=== PATIENT | male | born 1995 | race Caucasian/White ===

== ENCOUNTER 2019-03-11 19:57 | Emergency (ER) | payer SELFPAY ==
--- NOTE | 2019-03-11 20:30 | ER Document Report ---
ED Medical Screen (RME) - General Chief Complaint: Probable Seizure Stated Complaint: SEIZURE,CHEST PAIN Time Seen by Provider: 03/11/19 20:22 Mode of Arrival: Medic Information source: Patient Notes: 23-year-old male presented to ED for complaint of having a seizure at work. He states he was leaning up against a counter talking with a customer when also suddenly he felt funny he settled for leaned against a counter and then does not remember anything else until he woke up into the EMS. He states he has had one seizure in the past in 2016 and they were not able to find anything then. Patient is alert oriented respirations regular and unlabored speaking in full sentences answering all questions appropriately. He states he does smoke half pack a day does not drink alcohol but does use pot daily. He was at work at [employer] when this happened. He states the only medical history he has besides his seizures his clavicle and finger fractures. He has not had any surgeries. I have greeted and performed a rapid initial assessment of this patient. A comprehensive ED assessment and evaluation of the patient, analysis of test results and completion of medical decision making process will be conducted by an additional ED providers. TRAVEL OUTSIDE OF THE [place] IN LAST 30 DAYS: No Physical Exam - Vital signs Vitals: Temp Pulse Resp BP Pulse Ox 97.9 F 68 18 137/74 H 100 03/11/19 20:09 03/11/19 20:09 03/11/19 20:09 03/11/19 20:09 03/11/19 20:09 Course - Vital Signs Vital signs: Temp Pulse Resp BP Pulse Ox 97.9 F 68 18 137/74 H 100 03/11/19 20:09 03/11/19 20:09 03/11/19 20:09 03/11/19 20:09 03/11/19 20:09
[2019-03-11 21:00] LABS: ABSOLUTE BASOPHILS # (AUTO) 0.1 10^3/uL (0.0-0.2); ABSOLUTE EOSINOPHILS # (AUTO) 0.1 10^3/uL (0.0-0.6); ABSOLUTE LYMPHOCYTES (AUTO) 1.9 10^3/uL (0.5-4.7); ABSOLUTE MONOCYTES (AUTO) 0.4 10^3/uL (0.1-1.4); BASOPHILS % (AUTO) 0.9 % (0-2); EOSINOPHILS % (AUTO) 1.9 % (0-6); HEMATOCRIT 43.8 % (37.9-51.0); HEMOGLOBIN 14.9 g/dL (13.5-17.0); LYMPHOCYTES % (AUTO) 24.7 % (13-45); MEAN CORPUSCULAR HEMOGLOBIN 31.5 pg (27.0-33.4); MEAN CORPUSCULAR HGB CONC 33.9 g/dL (32.0-36.0); MEAN CORPUSCULAR VOLUME 93 fl (80-97); MONOCYTES % (AUTO) 5.8 % (3-13); PLATELET COUNT 199 10^3/uL (150-450); RED BLOOD COUNT 4.72 10^6/uL (4.35-5.55); RED CELL DISTRIBUTION WIDTH 13.4 % (11.5-14.0); SEGMENTED NEUTROPHILS % (AUTO) 66.7 % (42-78); TOTAL CELLS COUNTED % (AUTO) 100 %; WHITE BLOOD COUNT 7.5 10^3/uL (4.0-10.5)
[2019-03-11 21:03] LABS: APPEARANCE,URINE CLEAR; BILIRUBIN,URINE NEGATIVE (NEGATIVE); COLOR,URINE YELLOW; GLUCOSE, URINE NEGATIVE (NEGATIVE); KETONES,URINE NEGATIVE (NEGATIVE); LEUKOCYTE ESTERASE,URINE NEGATIVE (NEGATIVE); NITRITE,URINE NEGATIVE (NEGATIVE); PROTEIN,URINE 30 mg/dL (NEGATIVE); URINE SPECIFIC GRAVITY 1.025
[2019-03-11 21:29] LABS: CREATINE KINASE MB 1.62 ng/mL (<4.55)
[2019-03-11 21:30] LABS: TROPONIN I < 0.012 ng/mL
[2019-03-11 21:33] LABS: ALKALINE PHOSPHATASE 81 U/L (38-126); ANION GAP 12 (5-19); ASPARTATE AMINO TRANSFERASE 37 U/L (17-59); BILIRUBIN,DIRECT 0.2 mg/dL (0.0-0.4); BILIRUBIN,TOTAL 0.6 mg/dL (0.2-1.3); BLOOD UREA NITROGEN 16 mg/dL (7-20); CALCIUM 9.6 mg/dL (8.4-10.2); CARBON DIOXIDE 22 mmol/L (22-30); CHLORIDE 104 mmol/L (98-107); CREATINE KINASE 486 U/L (55-170); GLUCOSE 86 mg/dL (75-110); TOTAL PROTEIN 7.9 g/dL (6.3-8.2)
--- NOTE | 2019-03-11 21:45 | RADIOLOGY REPORT (SQ) ---
EXAM DESCRIPTION: XR CHEST 2 VIEWS COMPLETED DATE/TME: 03/11/2019 20:27 CLINICAL HISTORY: 23 years Male chest pain COMPARISON: None. FINDINGS: The cardiomediastinal silhouette appears unremarkable. No consolidating infiltrates or pleural effusions. No pneumothorax. IMPRESSION: No acute abnormality is identified.
[2019-03-11] MEDS ORDERED: ACETAMINOPHEN 325 MG TABLET PO ONE (22:13)
[2019-03-11 22:35] LABS: ALCOHOL < 10 mg/dL (NONE DETECTED)
[2019-03-11] MEDS ORDERED: KETOROLAC TROMETHAMINE 10 MG TABLET PO ONE (22:35)
[2019-03-11] MEDS ORDERED: DIAZEPAM 5 MG TABLET PO ONE (22:35)
--- NOTE | 2019-03-11 22:38 | ER Document Report ---
ED General - General Chief Complaint: Probable Seizure Stated Complaint: SEIZURE,CHEST PAIN Time Seen by Provider: 03/11/19 20:22 Primary Care Provider: [facility] [NO LOCAL MD] - Follow up in 3-5 days Mode of Arrival: Ambulatory Information source: Patient, Relative Notes: 23-year-old male with no reported past medical history presents via private vehi martita after reported seizure that occurred while at work just prior to arrival. Patient states that he works at [employer] and had a sudden onset of feeling flushed, nauseous and had visual changes which made him lower himself to the ground. He states the next thing he remembers he was being woken up by EMS. Unclear whether patient had body shaking or if this was near syncope or syncope. Patient reports one prior seizure in 2016 where he was evaluated in [place] and underwent an EEG which was normal. Patient denies any recent illness, alcohol use, new medications. He does admit to occasional marijuana use. Patient currently complaining of upper back pain. Patient has no tongue laceration, did not have urinary incontinence. He is alert, awake and does not appear to be postictal TRAVEL OUTSIDE OF THE [place] IN LAST 30 DAYS: No - HPI Onset: This evening Onset/Duration: Sudden Quality of pain: Achy Severity: Mild Associated symptoms: Body/muscle aches, Other - Back pain, reported seizure. denies: Chest pain, Chills, Nonproductive cough, Diarrhea, Fever, Headache, Nausea, Vomiting, Shortness of breath Exacerbated by: Denies Relieved by: Denies Similar symptoms previously: Yes Recently seen / treated by doctor: No - Related Data Allergies/Adverse Reactions: Apple Mold Allergy (Uncoded 03/11/19 20:31) Bluegrass Allergy (Uncoded 03/11/19 20:31) Past Medical History - General Information source: Patient - Social History Smoking Status: Current Every Day Smoker Cigarette use (# per day): Yes - 15 Smoking Education Provided: Yes - Smoking cessation counseling was provided for 4 minutes at the bedside Frequency of alcohol use: None Drug Abuse: Marijuana Lives with: Spouse/Significant other Family History: Reviewed & Not Pertinent Patient has suicidal ideation: No Patient has homicidal ideation: No Neurological Medical History: Reports: Hx Seizures Renal/ Medical History: Denies: Hx Peritoneal Dialysis Review of Systems - Review of Systems Notes: REVIEW OF SYSTEMS: CONSTITUTIONAL : Denies fever, chills, or sweats. Denies recent illness. Denies weight loss, recent hospitalizations. EENT: Denies visual changes, eye pain. Denies sore throat, oral lesions, difficulty swallowing. CARDIOVASCULAR: Denies chest pain. Denies palpitations. Denies lower extremity edema. RESPIRATORY: Denies cough. Denies shortness of breath, wheezing. GASTROINTESTINAL: Denies abdominal pain or distention. Denies nausea, vomiting, or diarrhea. Denies blood in vomitus, stools, or per rectum. Denies black, tarry stools. Denies constipation. GENITOURINARY: Denies difficulty urinating, painful urination, frequency, blood in urine, testicular pain or penile discharge. MUSCULOSKELETAL: Denies neck pain or stiffness. Denies joint pain or swelling. SKIN: Denies rash, lesions or sores. HEMATOLOGIC : Denies easy bruising or bleeding. LYMPHATIC: Denies swollen glands. NEUROLOGICAL: Denies confusion or altered mental status. Denies loss of consciousness. Denies dizziness or lightheadedness. Denies headache. Denies weakness or paralysis. Denies problems difficulty with ambulation, slurred speech. Denies sensory loss, numbness, or tingling. + seizures. PSYCHIATRIC: Denies anxiety or stress. Denies depression, suicidal ideation, or Physical Exam - Vital signs Vitals: Temp Pulse Resp BP Pulse Ox 97.9 F 68 18 137/74 H 100 03/11/19 20:09 03/11/19 20:09 03/11/19 20:09 03/11/19 20:09 03/11/19 20:09 - Notes Notes: PHYSICAL EXAMINATION: GENERAL: Well-appearing, well-nourished and in no acute distress. HEAD: Atraumatic, normocephalic. EYES: Pupils equal round and reactive to light, extraocular movements intact, sclera anicteric, conjunctiva are normal. ENT: Nares patent, oropharynx clear without exudates. Moist mucous membranes. NECK: Normal range of motion, supple without lymphadenopathy LUNGS: Breath sounds clear to auscultation bilaterally and equal. No wheezes rales or rhonchi. HEART: Regular rate and rhythm without murmurs ABDOMEN: Soft, nontender, nondistended abdomen. No guarding, no rebound. No masses appreciated. Musculoskeletal: Normal range of motion, no pitting or edema. No cyanosis. NEUROLOGICAL: Cranial nerves grossly intact. Normal speech, normal gait. Normal sensory, motor exams PSYCH: Normal mood, normal affect. SKIN: Warm, Dry, normal turgor, no rashes or lesions noted. Course - Re-evaluation Re-evalutation: 03/11/19 22:36 Laboratory 03/11/19 03/11/19 03/11/19 20:40 20:40 20:40 WBC 7.5 RBC 4.72 Hgb 14.9 Hct 43.8 MCV 93 MCH 31.5 MCHC 33.9 RDW 13.4 Plt Count 199 Lymph % (Auto) 24.7 [place] % (Auto) 5.8 Eos % (Auto) 1.9 Baso % (Auto) 0.9 Absolute Neuts (auto) 5.0 Absolute Lymphs (auto) 1.9 Absolute Monos (auto) 0.4 Absolute Eos (auto) 0.1 Absolute Basos (auto) 0.1 Seg Neutrophils % 66.7 Sodium 137.6 Potassium 4.0 Chloride 104 Carbon Dioxide 22 Anion Gap 12 BUN 16 Creatinine 0.96 Est GFR ( Amer) > 60 Est GFR (MDRD) Non-Af > 60 Glucose 86 Calcium 9.6 Total Bilirubin 0.6 Direct Bilirubin 0.2 Neonat Total Bilirubin Not Reportable Neonat Direct Bilirubin Not Reportable Neonat Indirect Bili Not Reportable AST 37 ALT 16 Alkaline Phosphatase 81 Creatine Kinase 486 H CK-MB (CK-2) 1.62 Troponin I < 0.012 Total Protein 7.9 Albumin 5.0 Lipase 90.5 Urine Color Urine Appearance Urine pH Ur Specific [place] Urine Protein Urine Glucose (UA) Urine Ketones Urine Blood Urine Nitrite Urine Bilirubin Urine Urobilinogen Ur Leukocyte Esterase Urine WBC (Auto) Urine RBC (Auto) U Hyaline Cast (Auto) Squamous Epi Cells Auto Urine Mucus (Auto) Urine Ascorbic Acid Serum Alcohol 03/11/19 03/11/19 20:40 20:40 WBC RBC Hgb Hct MCV MCH MCHC RDW Plt Count Lymph % (Auto) [place] % (Auto) Eos % (Auto) Baso % (Auto) Absolute Neuts (auto) Absolute Lymphs (auto) Absolute Monos (auto) Absolute Eos (auto) Absolute Basos (auto) Seg Neutrophils % Sodium Potassium Chloride Carbon Dioxide Anion Gap BUN Creatinine Est GFR ( Amer) Est GFR (MDRD) Non-Af Glucose Calcium Total Bilirubin Direct Bilirubin Neonat Total Bilirubin Neonat Direct Bilirubin Neonat Indirect Bili AST ALT Alkaline Phosphatase Creatine Kinase CK-MB (CK-2) Troponin I Total Protein Albumin Lipase Urine Color YELLOW Urine Appearance CLEAR Urine pH 6.0 Ur Specific [place] 1.025 Urine Protein 30 H Urine Glucose (UA) NEGATIVE Urine Ketones NEGATIVE Urine Blood NEGATIVE Urine Nitrite NEGATIVE Urine Bilirubin NEGATIVE Urine Urobilinogen 2.0 H Ur Leukocyte Esterase NEGATIVE Urine WBC (Auto) 1 Urine RBC (Auto) 1 U Hyaline Cast (Auto) 1 Squamous Epi Cells Auto <1 Urine Mucus (Auto) RARE Urine Ascorbic Acid NEGATIVE Serum Alcohol < 10 Chest X-Ray 03/11/19 20:27 IMPRESSION: No acute abnormality is identified. Temp Pulse Resp BP Pulse Ox 97.9 F 68 18 137/74 H 100 03/11/19 20:09 03/11/19 20:09 03/11/19 20:09 03/11/19 20:09 03/11/19 20:09 ED course History: 23-year-old male presents with chief complaint of seizure that occurred just prior to arrival Patient evaluated. Vital signs were reviewed. Patient is afebrile, normotensive, not tachycardic or hypoxic Previous medical records and nursing notes reviewed. Patient does not appear toxic or dehydrated they are in no acuted distress Exam Findings: Normal physical and neurologic exam Lab Findings: CBC is without leukocytosis or anemia. CMP shows no electrolte abnormalities and normal renal function. LFTs WNL. UA not consistent with UTI. Cardiac enzymes within normal limits. Chest x-ray shows no acute process. Serum alcohol is negative. 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 He was administered Tylenol, Toradol for his back pain Revaluation: Patient reports resolution of his back pain. Parents are now at the bedside and state concern for recurrent seizures. Patient has had one prior seizure 3 years ago and a normal EEG. Keppra was offered but patient declines. I have recommended follow-up with community care in clinic, I also advised the patient that he should apply for Medicaid. Patient was also advised that he should not drive until evaluated by neurology or primary care physician. MDM: Presentation of well-appearing patient after having a seizure. Patient has a known history of seizures. No obvious trigger for today's episode. The patient has returned to baseline without intervention. No focal neurologic deficits. No infectious symptoms, vital sign abnormalities, or evidence of trauma. The patient will be discharged home with recommendations for close follow-up with primary care as well as their neurologist. Return precautions have been reviewed and patient has verbalized understanding. Patient was evaluated and treated as appropriate for the patient's presenting symptoms and complaint, with consideration of any critical or life threatening conditions that may be associated with their obtained history and exam as noted above. All results were discussed with patient and his parents are at the bedside. Patient provided the opportunity to ask questions, and express concerns. Patient was educated on treatments based on their presumed diagnosis as noted above. At this time we will discharge the patient with return precautions and follow-up recommendations. Verbal discharge instructions given a the bedside. Medication warnings reviewed. Patient is in agreement with this plan and has verbalized understanding of return precautions. After careful consideration I feel that that patient can be safely discharged from the emergency department, they were advised to followup with a primary care physician in 2-3 days. Dictation on this chart was performed using voice recognition software and may result in unintended grammatical, spelling, syntax or errors. 03/11/19 22:39 03/12/19 02:29 - Vital Signs Vital signs: Temp Pulse Resp BP Pulse Ox 97.9 F 78 20 123/78 98 03/11/19 20:09 03/12/19 00:57 03/12/19 00:57 03/12/19 00:57 03/12/19 00:57 - Laboratory Result Diagrams: 03/11/19 20:40 03/11/19 20:40 Laboratory results interpreted by me: 03/11/19 03/11/19 20:40 20:40 Creatine Kinase 486 H Urine Protein 30 H Urine Urobilinogen 2.0 H - Diagnostic Test Radiology reviewed: Image reviewed, Reports reviewed - EKG Interpretation by Me EKG shows normal: Sinus rhythm Rate: Normal Rhythm: NSR Voltage: Consistant with LVH When compared to previous EKG there are: Previous EKG unavailable Discharge - Discharge Clinical Impression: Questionable seizure, Syncope and collapse Condition: Good Disposition: HOME, SELF-CARE Instructions: New Seizure ([facility]), Seizure, Known Epileptic ([facility]), Syncopal Episode ([facility]) Additional Instructions: Today you had a seizure. It is very important that you do not engage in any activities that could result in severe injury should you have a seizure. Specifically, do not drive a vehicle, go into a body of water, take a bath, climb ladders, or operate any heavy machinery until you have been cleared by your neurologist. Please return to the ED immediately if you have multiple seizures close together, develop a severe headache, weakness, numbness, difficulty speaking, have a seizure in which you do not return to normal within 1 hour of the seizure, or have any other symptoms that are concerning to you. Forms: Elevated Blood Pressure, Smoking Cessation Education, Return to Work [facility]errals: [facility] [NO [facility]AL MD] - Follow up in 3-5 days
[2019-03-11 22:48] LABS: URINE AMPHETAMINES SCREEN NEGATIVE; URINE BARBITURATES SCREEN NEGATIVE; URINE BENZODIAZEPINES SCREEN NEGATIVE; URINE COCAINE SCREEN NEGATIVE; URINE MARIJUANA (THC) SCREEN UNCONFIRMED POSITIVE; URINE METHADONE SCREEN NEGATIVE; URINE PHENCYCLIDINE SCREEN NEGATIVE
--- NOTE | 2019-03-12 00:09 | RADIOLOGY REPORT (SQ) ---
CLINICAL HISTORY: possible seizure COMPARISON: None. TECHNIQUE: CT HEAD WITHOUT IV CONTRAST on 03/11/2019 11:19 PM CDT This exam was performed according to our departmental dose-optimization program, which includes automated exposure control, adjustment of the mA and/or kV according to patient size and/or use of iterative reconstruction technique. FINDINGS: There is no acute hemorrhage, mass effect or midline shift. Lynch-white differentiation is preserved. There is no hydrocephalus. There is no significant volume loss for age. The calvarium is intact. Orbits and globes are unremarkable. There is a right maxillary sinus mucous retention cyst. Mastoid air cells are clear. IMPRESSION: No acute intracranial findings.
--- NOTE | 2019-03-12 00:14 | EKG REPORT ---
SEVERITY:- ABNORMAL ECG - SINUS ARRHYTHMIA, RATE 54-91 CONSIDER LEFT VENTRICULAR HYPERTROPHY : Confirmed by: Alina Anderson MD 12-Mar-2019 00:13:42
[2019-03-12 00:59] VITALS: BP 123/78
== END 2019-03-12 00:56 | disposition home or self-care (01) ==
LOC: ER 19:57
DX: R55 Syncope and collapse (principal); G40.909 Epilepsy, unspecified, not intractable, without status epilepticus; M79.10 Myalgia, unspecified site; R11.0 Nausea; F17.210 Nicotine dependence, cigarettes, uncomplicated
CPT/HCPCS: 93005; 36415; 82553; 80307 ×2; 82550; 83690; 85025; 80053; 81001; 84484; 71046; 70450; 93010; J3490; 99284; 99406